=== PATIENT | female | born 1945 | race Caucasian/White ===

== ENCOUNTER 2016-09-16 17:56 | Emergency (ER) | payer MEDICARE, BC ==
[~2016-09-16 17:56] MED LIST: PERCOCET 5/325 T1 EA PO
[2016-09-16 20:44] LABS: HEMOGLOBIN 14.2 gm/dl (12.3-15.3); RED BLOOD COUNT 4.95 M/UL (4.00-5.10); WHITE BLOOD COUNT 10.8 K/UL (4.5-11.0)
[2016-09-16 21:04] LABS: BUN/CREATININE RATIO 19 (0-10)
== END 2016-09-16 22:00 | disposition home or self-care (01) ==
LOC: ER1 17:56
PROVIDERS: Emergency Medicine
DX: R51 Headache (principal); Z88.8 Allergy status to other drugs, medicaments and biological substances
CPT/HCPCS: 36415; 70450; 71010; 80053; 81001; 82550; 82553; 83605; 83874; 83880; 84484; 85025; 87086; 96361; 96374; 96375; 99284; J1200; J2405; J2930